=== PATIENT | female | born 1980 | race Caucasian/White ===

== ENCOUNTER → 2020-04-24 16:00 | Outpatient (CLI) | payer OTHER, SELFPAY ==
--- NOTE | 2020-04-24 16:00 | EMB_PTH ---
PATIENT: TATIANNA WALTER LOC: [facility] U#:[id number] AGE/SX: 44/F ROOM: RE04/24/[address]: Dr. Nas Abreu MD : 1980 BED: DIS: SPEC #: [id number] RECD: 04/25/20 13:00 STATUS: MEL[facility] CAVAZOSMarion #: [id number] ARMIN: 04/24/20 16:[address]: Nas Abreu DEPT: SURGICAL PATHOLOGY RECD BY: Marko West Tissues: Endometrium, NOS Procedures: Surgery Specimen Level IV HEADER OPERATION: Endometrial biopsy PRE-OP DIAGNOSIS: Menorrhagia TISSUE SUBMITTED: Endometrial biopsy MICROSCOPIC DIAGNOSIS Endometrium, biopsy: Secretory endometrium. AM:man 04/27/20 MICROSCOPIC DESCRIPTION Slides are reviewed. GROSS DESCRIPTION Received in fixative is one container labeled with the patient's name and designated EM biopsy. The specimen consists of multiple irregular fragments of damon soft tissue mixed with blood clot that in aggregate measure 2.5 x 2 x 0.1 cm. The specimen is totally submitted in one cassette. / SJ:man 04/26/20 TC:5 CPT: 98141
[2020-04-28 13:20] LABS: HPV Reflexed? NOT INDICATED
== END ==
PROVIDERS: Visit Provider Obstetrics & Gynecology
DX: Z12.4 Encounter for screening for malignant neoplasm of cervix (principal); N92.0 Excessive and frequent menstruation with regular cycle
CPT/HCPCS: 88175; 88305; G0145

== ENCOUNTER 2020-06-04 08:51 | Day surgery (SDC) | payer OTHER, SELFPAY ==
[2020-05-31 11:39] LABS: Hematocrit 41.9 % (37-47); Hemoglobin 13.6 g/dL (12.0-15.0); Mean Corp Hgb Conc 32.5 g/dL (32-36); Mean Corpuscular Hgb 28.9 pg (27.0-32.0); Mean Platelet Vol. 10.6 fl (6.2-12.0); Platelet Count 241 K/mm3 (150-450); RBC Distribution Width CV 13.1 % (11.6-14.6); RBC Distribution Width SD 42.9 fl (35.1-43.9); Red Blood Count 4.71 M/mm3 (4.2-5.4); White Blood Count 6.9 K/mm3 (4.4-11.0)
[2020-05-31 12:02] LABS: Partial Thromboplast Time 23.6 Seconds (24.1-36.2); Prothrombin Time (Protime)PT. 12.7 SECONDS (11.7-14.9)
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
[2020-06-04] VITALS (9 sets, daily range): BP systolic 132–157; BP diastolic 69–91; PULSE 69–84; RESP 16–18; TEMP 36.3–36.7; O2SAT 94–99; BMI 36.6
--- NOTE | 2020-06-04 | EMB_PTH ---
PATIENT: TATIANNA WALTER LOC: [facility] [place] U#:[id number] AGE/SX: 39/F ROOM: RE06/04/[address]: Dr. Nas Abreu MD : 1980 BED: DIS: 06/04/2020 SPEC #: [id number] RECD: 06/04/20 13:02 STATUS: MELODY BRENDA #: [id number] ARMIN: 06/04/20 00:[address]: Nas Abreu DEPT: SURGICAL PATHOLOGY RECD BY: Chris Galvan ENTERED: 06/04/20 13:03 SP TYPE: ENDOM BX/C OTHR DR: Dr. Yury Richards MD Tissues: Endometrium, NOS Procedures: Surgery Specimen Level IV HEADER OPERATION: Hysteroscopy, D & C hydroablation PRE-OP DIAGNOSIS: Menorrhagia TISSUE SUBMITTED: Endometrial curettings MICROSCOPIC DIAGNOSIS Endometrium, curettings: Secretory endometrium with glandular and stromal breakdown. Rare fragments of benign endocervix. AM:man 06/05/20 MICROSCOPIC DESCRIPTION Slides are reviewed. GROSS DESCRIPTION Received in fixative is one container labeled with the patient's name and designated endometrial curettings. The specimen consists of multiple irregular fragments of red-damon soft tissue that in aggregate measure 7 x 5 x 0.2 cm. The specimen is totally submitted in three cassettes. / AM:man 06/04/20 TC:5 CPT: 52830
[2020-06-04] MEDS: Lactated Ringers 1,000 ML 100 ML IV ×2 (11:00→12:17)
[2020-06-04] MEDS: Cefotetan 2 GM in 0.9% NS 100 ML IV (11:10)
--- NOTE | 2020-06-04 11:51 | PCM.OPRPT ---
Report of Operation Date of Procedure: 06/04/20 Pre-Operative Diagnosis: Menorrhagia Post-Operative Diagnosis: Menorrhagia Surgery/Procedure Performed:: Diagnostic Hysteroscopy, Dilation and Curettage, Hydrothermal Thermal Ablation Description of Surgical Findings:: 10 cm endometrial cavity with plush endometrium. Minimal cervical descensus with tenaculum pulldown which would make vaginal hysterectomy difficult but robotic assisted vaginal hysterectomy possible should this be ever needed. Type of Anesthesia:: General - Endotracheal Anesthesiologist: J Carlos Stock Specimen's removed: Endometrial curettings Estimated Blood Loss (mL): Minimal Fluids Replaced: Crystalloid Description of Procedure: Surgeon: Nas Abreu MD, FACOG Indication: This is a 39 year old patient who has been having problems with extremely heavy menses. Conservative measures have not been helpful. Endometrial sampling was benign and pelvic ultrasound showed that ablation may be helpful. Pt has been counseled regarding the risks, benefits and alternatives of this procedure and all questions answered. She understands that only about half of patients will have amenorrhea after this procedure. Procedure: Patient taken to the operating room where after induction of general anesthesia the patient was prepped and draped in the usual sterile fashion. Bladder was drained of urine with a catheter. Anterior cervix grasped and cervix was dilated to about 17 Lithuanian size. Hysteroscopic hydrothermal ablation (HTA) unit was place in the cervix and the above findings were noted. HTA unit was removed and the uterus was gently curetted removing all contents. An HTA ablation cycle was then carried out at about 90 degrees Centigrade for 10 minutes with virtually no fluid loss during the procedure. After an appropriate cool down the HTA unit was removed with minimal bleeding noted. The patient tolerated the procedure well and was taken to the recovery room in satisfactory condition. Sponge, instruments and needle counts were all correct. There were no apparent complications of the surgery. Cefotan 2 gms IV was given prior to the procedure. Grafts/Implants Used: None - Complications None - Admit VTE Documentation VTE Present on Admission: Yes VTE Mechan Device Prophylaxis: SCD's
--- NOTE | 2020-06-04 12:02 | PCM.DC.D&C ---
Discharge Diet: No Restrictions Discharge Activity: Return to Normal Activity, May Shower, May Take a Tub Bath May resume sexual activity in: 3 weeks Call your doctor if you observe: Fever of 101 or Higher, Inability to urinate, Inability to have a bowel movement Allergies/Adverse Reactions: Allergies Sulfa (Sulfonamide Antibiotics) Allergy (Verified 06/04/20 09:12) Swelling rash Medications to take at Discharge Atorvastatin Calcium [Lipitor] 20 mg PO DAILY 05/25/20 Insulin Lispro [Humalog] 50 - 70 unit SQ DAILY 05/25/20 Oxycodone [Oxyir] 5 mg PO Q6H PRN PRN 7 Days #7 tablet 06/04/20 The following prescriptions were given: Oxycodone [Oxyir] 5 mg PO Q6H PRN PRN 7 Days #7 tablet PRN Reason: Pain Score 6-10/10 Transmission Status: Sent to [facility] Primary Care Physician: Yury Richards MD [Primary Care Provider] - Test Results: Test results from this visit will be discussed in further detail at your follow-up appointment, if applicable. Please Follow Up With: Nas Abreu MD When: 3-4 weeks
[2020-06-04] MEDS: oxyCODONE 5 MG Tablet PO (13:42)
== END 2020-06-04 14:41 | disposition home or self-care (01) ==
LOC: SDC 08:52 → AC 08:53
PROVIDERS: Anesthesiology; PCP Orthopaedic Surgery; Referring Provider Obstetrics & Gynecology; Visit Provider Obstetrics & Gynecology
PROC: 0U5B8ZZ Destruction of Endometrium, Via Natural or Artificial Opening Endoscopic (ICD-10-PCS; CPT 58563; principal; 2020-06-04 10:20)
DX: N92.0 Excessive and frequent menstruation with regular cycle (principal); E10.9 Type 1 diabetes mellitus without complications; Z96.41 Presence of insulin pump (external) (internal); E78.00 Pure hypercholesterolemia, unspecified; Z79.899 Other long term (current) drug therapy; Z79.4 Long term (current) use of insulin; F17.200 Nicotine dependence, unspecified, uncomplicated
CPT/HCPCS: 00952; 58563; 36415; 85027; 85610; 85730; 86850; 86900; 86901; 87635; 88305; C9803; J7120; J2405; U0003

== ENCOUNTER 2023-10-09 08:00 | Outpatient (RCR) | payer OTHER, SELFPAY ==
--- NOTE | 2023-09-11 11:11 | HP.PTEVAL_ITS ---
Patient's Visit Information Visit Information Visit Information: TATIANNA WALTER is a 43 year old F referred to Physical Therapy by Dr. Rc Dobbs DO with a diagnosis of CERVICALALGIA. Date of Evaluation: 09/11/23 Physical Therapist: Shaun Torres PT, Cert MDT, OCS Visit Plan Frequency: 2x /Week Duration: 4 Weeks Plan: PT INTERVENTIONS CERVICAL/POSTURAL EX'S ,SHRUTHI EX'S ,MANUAL THERAPY STM/SCERVICAL TRACTION AND MODALTIES ( ICTX) Subjective Subjective: this 43 y/o female present with physical therapy with cervical pain. Patient had about ~ 1 year ago by chiropractor Y strap manipulation . Patient seen another chiropractor who referred to family DR for MRI but see Dr Dobbs to try PT and may need need MRI. X-rays looked good. Patient described tightness to shoulder blades with radicular symptoms to left elbow. Patient has occipital HENRY. Aggravating factors turning ,sitting driving and sleeping and lifting and using arms fatigue. Alleviating factors rest heat/cold. Patient pain affects sleeping. Dizziness/nausea but has h/o vertigo. Patient denies parestehesia/tingling left arm. 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 Patient condition affects QOL and function. Patient goals to decrease pain. 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 Bilateral Neck: Pain Intensity (Out of 10): 7 Pain Intensity Range: 10 Left Shoulder: Pain Intensity (Out of 10): 5 Pain Intensity Range: 10 Objective Objective: POSTURE: forward posture guarded position PALAPTION: tender UT/levator NUERO: denies paresthesia/tingling ,reflexes CERVICAL ROM: flexion min loss ,extension min loss , rotation/lateral flexion mod loss pain pain on right side MMT: 4/5 grossly ,mytomes intact Special Tests C/S Radiculapathy - Left Upper limb tension test: Negative C/S Radiculapathy - Right Upper limb tension test: Negative C/S Radiculapathy - Left Spurlings: Negative C/S Radiculapathy - Right Spurlings: Negative C/S Radiculapathy - Left Cervical distraction: Positive C/S Radiculapathy - Right Cervical distraction: Negative C/S Radiculapathy - Left Relief test: Negative C/S Radiculapathy - Right Relief test: Negative C/S Radiculapathy - Valsalva: Negative Sharp Bogdan: Negative Vertebral Artery Test: Negative Alar Ligament Test: Negative Cervical Sitting: Protrusion - Mechanical Response: No effect Cervical Sitting: Protrusion - Symptoms During Testing: Increases Cervical Sitting: Protrusion - Symptoms After Testing: No worse Cervical Sitting: Retraction - Mechanical Response: No effect Cervical Sitting: Retraction - Symptoms During Testing: Decreases Cervical Sitting: Retraction - Symptoms After Testing: Worse Cervical Sitting: Retraction-Extension - Mechanical Response: No effect Cerv Sitting: Retraction-Extension - Symptoms During Testing: Decreases Cerv Sitting: Retraction-Extension - Symptoms After Testing: Better Cervical Sitting: Sidebend Right - Mechanical Response: No effect Cervical Sitting: Sidebend Right - Symptoms During Testing: Increases Cervical Sitting: Sidebend Right - Symptoms After Testing: No worse Cervical Sitting: Sidebend Left - Mechanical Response: No effect Cervical Sitting: Sidebend Left - Symptoms During Testing: No effect Cervical Sitting: Sidebend Left - Symptoms After Testing: No effect Cervical Sitting: Rotation Right - Mechanical Response: No effect Cervical Sitting: Rotation Right - Symptoms During Testing: Increases Cervical Sitting: Rotation Right - Symptoms After Testing: No worse Cervical Sitting: Rotation Left - Mechanical Response: No effect Cervical Sitting: Rotation Left - Symptoms During Testing: No effect Cervical Sitting: Rotation Left - Symptoms After Testing: No effect Cervical Sitting: Flexion - Mechanical Response: No effect Cervical Sitting: Flexion - Symptoms During Testing: Increases Cervical Sitting: Flexion - Symptoms After Testing: No worse Balance/Special Test Scores Oswestry Neck Score: 29 Goals Goal 1:: Patient to be I with HEP cervical Goal Time Frame: 4-6 Weeks Goal 2:: Patient to improve posture for ADLS Goal Time Frame: 4-6 Weeks Goal 3:: Patient to improve cervical rom for function of recovery to turn neck with driving Goal Time Frame: 4-6 Weeks Goal 4:: Patient to demonstrate 50% improvement with less pain and improved function Goal Time Frame: 4-6 Weeks Goal 5:: Patient to improve neck oswestry score by 5 points to improve QOL and function Goal Time Frame: 4-6 Weeks Rehabilitation Potential Physical Therapy Diagnosis: This patient has cervical pain possible derangement with disc with pain with positioning ,motion testing and worse with flexion and better with correction of posture and extension thus benefit from skilled PT Anticipated Interventions Patient/Client Instruction: Educate patient on: Condition and Plan of Care For the Purpose of:: To decrease pain, To increase ROM, To improve ability to perform ADL's, To increase tolerance to activity/condition/position, To improve ability of physical actions for home/community/work/leisure, To improve health of tissue, To decrease soft tissue restriction, To increase flexibility/ROM and To improve tolerance to ADL's Therapeutic Exercise to Include: Strength training, Body mechanics, Postural training, Flexibilty training and Active ROM For the Purpose of:: To decrease pain, To increase ROM, To improve muscle performance and motor function, To increase tolerance to activity/condition/position, To improve ability of physical actions for home/community/work/leisure, To improve health of tissue, To decrease soft tissue restriction, To increase flexibility/ROM and To improve tolerance to ADL's Manual Therapy Techniques to Include: Mobilization and Soft tissue mobilization For the Purpose of:: To decrease pain, To increase ROM, To improve muscle performance and motor function, To improve health of tissue, To decrease soft tissue restriction and To increase flexibility/ROM TENS: Yes IF ES: Yes Cryotherapy (ice pack, ice massage): Yes Thermo therapy (hot pack): Yes Ultrasound (thermal/non thermal): Yes Intermittent cervical traction: Yes For the Purpose of:: To decrease pain, To increase ROM, To improve nutrient delivery to tissue, To increase oxygenation perfusion, To improve health of tissue and To decrease soft tissue restriction Text: Thank you for the opportunity to evaluate your patient. For Medicare and Medicare HMO plans, please review the plan of care and approve it. It will need to be FAXED BACK to us at [phone] for Medicare purposes. For Medicare only, by signing this I certify the plan of care. Please let me know if there are questions or concerns regarding this plan of care. Physician Signature: ___Date:
--- NOTE | 2023-12-14 16:09 | HP.PTDCSUM ---
Discharge Summary D/C summary: It has been my pleasure to treat TATIANNA WALTER referred by Dr. Rc Dobbs DO, with the diagnosis of CERVICALALGIA for a total of 9 visit(s). Discharge Date: Please see the following information for a summary of their discharge status. Subjective Subjective: Sleeping is not good Pain Bilateral Neck: Pain Intensity (Out of 10): 1 Left Shoulder: Pain Intensity (Out of 10): 1 Overall Improvement % Improvement: 80 Objective Objective/Function: POSTURE: forward posture guarded position PALAPTION: tender UT/levator NUERO: denies paresthesia/tingling ,reflexes CERVICAL ROM: flexion WFL ,extension min loss , rotation/lateral flexion min loss pain MMT: 4/5 grossly ,mytomes intact PROGRESSING TOWARDS GOALS WELL Goals Goal 1:: Patient to be I with HEP cervical Goal Progress: Goal Met Goal 2:: Patient to improve posture for ADLS Goal Progress: Goal Met Goal 3:: Patient to improve cervical rom for function of recovery to turn neck with driving Goal Progress: Goal Met Goal 4:: Patient to demonstrate 50% improvement with less pain and improved function Goal Progress: Goal Met Goal 5:: Patient to improve neck oswestry score by 5 points to improve QOL and function Plan Plan: D/C D/C Information d/c sentence: If there are questions or concerns regarding this patient's physical therapy, please feel free to call me at [phone]. Thank you for the referral of this patient. Sincerely, Shaun Torres, PT, Cert MDT, OCS Balance/Gait/Functional tests Balance/Special Test Scores Oswestry Neck Score: 0 Improvement % Improvement: 80
== END 2023-10-09 19:00 | disposition home or self-care (01) ==
LOC: PT 08:00
PROVIDERS: PCP Orthopaedic Surgery; Referring Provider Orthopaedic Surgery; Visit Provider Orthopaedic Surgery
DX: M54.2 Cervicalgia (principal)
CPT/HCPCS: 97012; 97035; 97110; 97161; 97530

== ENCOUNTER → 2023-11-17 | Outpatient (CLI) | payer OTHER, SELFPAY ==
--- NOTE | 2023-11-17 08:06 | MRI_ITS ---
HISTORY: Neck pain, left shoulder pain. TECHNIQUE: Multiplanar and multisequence MR images of the cervical spine were obtained without contrast. 256 images. COMPARISON: XR 09/04/2023. FINDINGS: VERTEBRAE: Vertebral body heights maintained. No significant bone marrow signal abnormality. VERTEBRAL ALIGNMENT: No anterior or posterior subluxation. SPINAL CORD: Cervical cord signal and morphology within normal limits. SOFT TISSUES: No prevertebral fluid collection. INTERVERTEBRAL DISCS: C2-3: No significant signal abnormality, posterior disc protrusion, central canal stenosis, or foraminal narrowing. C3-4: Minimal disc bulge without significant central canal stenosis or foraminal narrowing. C4-5: Very mild disc bulge eccentric to the left with mild uncovertebral and facet arthropathy resulting in abutment of the left traversing nerve root and mild left foraminal narrowing. No significant central canal stenosis. C5-6, C6-7: No significant posterior disc protrusion or central canal stenosis. Mild uncovertebral and facet arthropathy resulting in mild left foraminal narrowing. C7-T1: No significant posterior disc protrusion, central canal stenosis, or foraminal narrowing. MRI/Spine Cervical (Routine) IMPRESSION: Very mild degenerative change of the cervical spine without significant spinal canal stenosis. Mild left foraminal narrowing and left nerve root abutment as above. Electronically Signed: Nakia Payan MD at 9:31 EDT ,
== END | disposition home or self-care (01) ==
PROVIDERS: PCP Orthopaedic Surgery; Referring Provider Orthopaedic Surgery; Visit Provider Orthopaedic Surgery
DX: M50.223 Other cervical disc displacement at C6-C7 level (principal)
CPT/HCPCS: 72141